=== PATIENT | female | born 1990 | race African-American/Black ===

== ENCOUNTER 2023-06-10 13:48 | Emergency (ER) | payer MEDICAID ==
[~2023-06-10] VITALS: Ht 162.6 cm; Wt 70.0 kg
[2023-06-10 13:57] VITALS: BP 109/67; PULSE 80; RESP 15; TEMP 98.5; O2SAT 99
[2023-06-10] MEDS ORDERED: CLIN-116 MT (15:09)
== END 2023-06-10 15:56 | disposition home or self-care (01) ==
LOC: ER 15:38
DX: K02.9 Dental caries, unspecified (principal)
CPT/HCPCS: 99283